=== PATIENT | female | born 1995 | race Caucasian/White ===

== ENCOUNTER 2025-03-05 18:14 | Emergency (ER) | payer OTHER, SELFPAY ==
[2025-03-05 18:20] VITALS: BP 126/92; PULSE 82; RESP 14; TEMP 36.6; O2SAT 100
[2025-03-05 18:41] LABS: EDUAAPPEAR Clear; EDUABILI Negative (Negative); EDUABLOOD Negative (Negative); EDUACOLOR1 Yellow; EDUAGLUCOSE Negative (Negative); EDUAKETONE Negative (Negative); EDUALEUKO Negative (Negative); EDUANITRATE Negative (Negative); EDUAPROTEIN Negative (Negative); EDUAUROBILI 0.2
--- NOTE | 2025-03-05 19:24 | ED.FEMALEGU ---
HPI - Female Genitourinary General Chief complaint: Urogenital-Female Stated complaint: Possible UTI Time Seen by Provider: 03/05/25 18:45 Source: patient and RN notes reviewed Mode of arrival: ambulatory Limitations: no limitations History of Present Illness HPI Narrative: 29-year-old female presents [facility] complaining of urinary symptoms for 5 days. Patient reports having dysuria, increased frequency, foul-smelling urine, suprapubic pain, and pain with having her bladder. Patient also reports having vaginal discharge she reports is yellow and white, thin that is foul smelling. Patient denies any fevers,, body aches, chills, nausea, vomiting, diarrhea. Patient denies any concerns for STIs states she is not currently sexually active. Patient states she is not on her period. Patient denies any chance of . Patient has not taken anything [id number] for symptoms. Patient denies any significant past medical history. Related Data Allergies Allergy/AdvReac Type Severity Reaction Status Date / Time No Known Allergies Allergy Verified 03/05/25 18:25 Review of Systems Review of Systems: CONSTITUTIONAL: Denies fever, chills, body aches, or sweats. EYES: Denies visual changes, redness, or discharge. ENT: Denies rhinorrhea, congestion, sore throat, or otalgia. CARDIOVASCULAR: Denies chest pain, palpitations, or edema. RESPIRATORY: Denies cough or dyspnea. GASTROINTESTINAL: Denies abdominal pain, nausea, vomiting, or diarrhea. GENITOURINARY: Positive for dysuria, suprapubic pain, increased frequency, vaginal discharge. Negative for hematuria, pelvic pain, painful intercourse, vaginal bleeding. SKIN: Denies rash or itching. MUSCULOSKELETAL: Denies back pain, joint pain, or myalgia. NEUROLOGIC: Denies headache, numbness, or weakness. PSYCHIATRIC: Denies anxiety or depression. All other systems reviewed are negative, except as documented in HPI. PMFSH Comments At the time of my signature, I reviewed and agree with the nursing past medical, surgical, social, and family history. There is no relevant family history pertinent to the patient complaint. Exam Narrative: GENERAL: This is a well-nourished, well-developed adult, in no apparent distress. They are non ill-appearing, nontoxic appearing. HEAD: normocephalic, atraumatic. EYES: Sclera clear/white. Vision is grossly intact. Conjunctiva normal bilaterally. Extraocular movements intact. EARS: External ears normal,Hearing grossly intact. NOSE: External nose normal THROAT: Mucous membranes moist NECK: Normal range of motion CARDIOVASCULAR: Regular rate and rhythm. Normal S1-S2. No clicks, gallops, rubs, murmurs. RESPIRATORY: Respiratory rate normal, respiratory effort nonlabored, no respiratory distress. Lung sounds clear to auscultation throughout. Lung sounds equal bilaterally. No adventitious lung sounds. GASTROINTESTINAL: Abdomen soft, flat, suprapubic tenderness to palpation, nondistended. Bowel sounds are active. No hepato-splenomegaly, or palpable masses. No guarding or rigidity. No rebound tenderness. GENTIOURINARY: Perineum without suspicious lesions or rashes. Normal vulva. No suspicious lesions or rashes. Pelvic exam: Cervix is pink without erythema or swelling. White vaginal discharge is present. No vaginal bleeding. No tenderness to palpation, palpable masses, or palpable ovaries during bimanual exam. SKIN: warm, Dry, intact with no suspicious lesions or rash, good texture and turgor. NEURO: awake, alert, and oriented to person, place and time. There were no obvious focal neurologic abnormalities. EXTREMITIES: No joint tenderness, effusion, or edema noted. BACK: Nontender without deformity. No CVA tenderness. Course Course Emergency Course: Portions of this record may have been created with voice recognition software Level of Care: Express Care Visit Vital Signs Vital signs: Vital Signs Temperature 97.9 F 03/05/25 18:20 Pulse Rate 82 03/05/25 18:20 Respiratory Rate 14 03/05/25 18:20 Blood Pressure 126/92 H 03/05/25 18:20 Pulse Oximetry 100 03/05/25 18:20 Oxygen Delivery Room Air 03/05/25 18:20 Temperature 97.9 F 03/05/25 18:20 Pulse Rate 82 03/05/25 18:20 Respiratory Rate 14 03/05/25 18:20 Blood Pressure 126/92 H 03/05/25 18:20 Pulse Oximetry 100 03/05/25 18:20 Oxygen Delivery Room Air 03/05/25 18:20 MDM - Female Genitourinary MDM Narrative Medical decision making narrative: Urine dipstick negative for any signs of infection. Urine culture pending. Clinically patient's symptoms are consistent with cystitis, however patient is also having vaginal discharge. Patient agreed to pelvic exam. Altagracia RN is aerospace physiological technician in room during exam. Pelvic exam is performed and patient was swabbed for bacterial vaginosis and a vaginal culture was obtained. Pelvic exam without any evidence of infection to cervix, no tenderness during by bimanual exam, no palpable overuse or masses. Offered additional STI testing the patient declined to be tested for them. BV and vaginal culture pending. Patient denies any concerns for STIs and states she has been abstinent for approximately 4 years now and states that she has had a negative test since she has been abstinent. Discussed with patient about wait for culture results and she has elected to go ahead and treat for a cystitis and await treatment for other vaginal condition she may have. Will treat with cephalexin. Discussed physical exam findings. Advised supportive measures and signs/symptoms to go to the ER. Pt is appropriate for outpt treatment and f/u. Differential Diagnosis Differential diagnosis: Likely urinary tract infection, bacterial vaginosis, ovarian cyst, cystitis and other (Pyelonephritis) Lab Data Attestation: I reviewed the patient's lab results. Labs: Lab Results 03/05/25 03/05/25 Range/Units 18:39 19:06 POC Urine Color Yellow POC Urine Clarity Clear POC Urine pH 6.0 POC Ur Specif [place] 1.030 POC Urine Protein Negative (Negative) POC Ur Glucose (UA) Negative (Negative) POC Urine Ketones Negative (Negative) POC Urine Blood Negative (Negative) POC Urine Nitrite Negative (Negative) POC Urine Bilirubin Negative (Negative) POC Urine Urobilinogen 0.2 POC U Leukocyte Esteras Negative (Negative) Bact Vaginosis Panel Pending Discharge Plan Discharge Clinical Impression: Cystitis, Vaginal discharge Patient Disposition: Home Condition: Stable Instructions: Antibiotic Form, Bacterial Vaginosis (ED), Urinary Tract Infection in Women (ED) Additional Instructions: You will be notified the results of your vaginal culture and bacterial vaginosis test and if any tested positive you will be treated appropriately. Take the antibiotic as prescribed The urine will be sent of for a culture to identify what type of bacteria is causing your infection. If the culture shows that the antibiotic will not get rid of your infection, you will be notified and a new antibiotic will be called in for you. Increase water intake you will need to follow up with your PCP 3-5 days. Go to the ER for any worsening symptoms, abdominal pain, fevers, nausea, vomiting, or any other concerns Patient Language: Malay Prescriptions: New cephalexin 500 mg capsule 500 mg PO BID 7 Days Qty: 14 0RF Follow-up/Referrals: PHYSICIAN,SOLDERING MACHINE OPERATOR AUTOMATIC [Primary Care Provider] - Time of Disposition: 19:18
--- NOTE | 2025-03-05 19:38 | PC.NURSE ---
1910 pelvic exam completed by provider; specimens collected.
[2025-03-09 11:39] LABS: Bacterial Vaginosis NEGATIVE (NEGATIVE)
== END 2025-03-05 19:25 | disposition home or self-care (01) ==
DX: N30.90 Cystitis, unspecified without hematuria (principal); N89.8 Other specified noninflammatory disorders of vagina
CPT/HCPCS: 81003; 81513; 87070; 87086; 99203; 99204; G0463